=== PATIENT | male | born 1990 | race Caucasian/White ===

== ENCOUNTER 2020-10-26 15:10 | Emergency (ER) | payer MEDICAID ==
[~2020-10-26] VITALS: Ht 177.8 cm; Wt 78.0 kg
[2020-10-26 15:52] VITALS: BP 140/88
== END 2020-10-26 16:10 | disposition home or self-care (01) ==
LOC: ED 15:45
DX: R19.7 Diarrhea, unspecified (principal); Z20.828 Contact with and (suspected) exposure to other viral communicable diseases
CPT/HCPCS: 87635; 99283